=== PATIENT | male | born 1965 | race Caucasian/White ===

== ENCOUNTER 2024-06-28 16:15 | Outpatient (RCR) | payer BC, SELFPAY | END 2024-09-28 09:03 | disposition home or self-care (01) | PROVIDERS: PCP Family Medicine; Visit Provider Physician Assistant | DX: M79.605 Pain in left leg (principal); M41.50 Other secondary scoliosis, site unspecified; Z51.89 Encounter for other specified aftercare | CPT/HCPCS: 97110; 97140; 97161 ==